=== PATIENT | female | born 1945 | race Hispanic/Latino ===

== ENCOUNTER 2022-06-09 14:59 | Inpatient (IN) | payer MEDICARE, MEDICAID ==
[~2022-06-09] VITALS: Ht 165.1 cm; Wt 68.0 kg
[2022-06-09] VITALS (10 sets, daily range): BP systolic 90–144; BP diastolic 36–77
[2022-06-09 15:27] LABS: BASO% 0.4 % (0-3); EOS% 2.8 % (0-8); HEMATOCRIT 40.4 % (37.0-47.0); HEMOGLOBIN 12.9 g/dl (12.0-16.0); IMMATURE GRANULOCYTES 0.1 % (0.0-5.0); LYMPH% 17.7 % (15-41); MEAN CORPUSCULAR HGB CONC 31.9 g/dL CAL (32.0-36.0); MONO% 9.9 % (2-13); NEUT# 5.6 thou/uL (2.00-7.15); NEUT% 69.1 % (42-76); RED BLOOD COUNT 4.3 mill/uL (4.20-5.60); RED CELL DISTRI WIDTH 13.5 % (11.5-15.5)
[2022-06-09 15:40] LABS: ALBUMIN 4.2 g/dL (3.2-5.0); ALKALINE PHOSPHATASE 116 u/l (38-126); ANION GAP 9 (6-22 (CALC)); BILIRUBIN, TOTAL 0.3 mg/dL (0.02-1.3); BUN 15 mg/dL (8-23); BUN/CREATININE RATIO 22 (12-20 (CALC)); CARBON DIOXIDE 32 mmol/l (22-30); CHLORIDE 104 mmol/l (95-108); CREATININE 0.7 mg/dL (0.5-1.0); GFR FOR AFR.AMER. > 60 ML/MIN (>=60 (CALC)); GFR OTHER RACES > 60 ML/MIN (>=60 (CALC)); POTASSIUM 4.7 mmol/l (3.5-5.1); SGOT/AST 28 u/l (9-36); SODIUM 139 mmol/l (137-146); TOTAL PROTEIN 7.3 g/dL (6.3-8.2)
[2022-06-09] MEDS ORDERED: LOSARTAN POTASS50 MG PO (15:47)
[2022-06-09] MEDS ORDERED: XALATAN 0.005%2.5 ML OU (15:47)
[2022-06-09] MEDS ORDERED: LEVOTHYROXIN50 MCG PO (15:47)
[2022-06-10 03:49] VITALS: BP 115/60
[2022-06-10 05:50] VITALS: BP 113/89
[2022-06-10 09:12] VITALS: BP 125/64
[2022-06-10 13:40] VITALS: BP 134/72
[2022-06-10 23:27] VITALS: BP 128/71
[2022-06-11 03:57] VITALS: BP 139/70
[2022-06-11 05:50] VITALS: BP 113/60
[2022-06-11 05:53] LABS: BASO% 0.1 % (0-3); HEMATOCRIT 38.9 % (37.0-47.0); HEMOGLOBIN 12.3 g/dl (12.0-16.0); IMMATURE GRANULOCYTES 1.2 % (0.0-5.0); LYMPH% 5.4 % (15-41); MEAN CELL VOLUME 95.1 fL CALC (80.0-100.0); MEAN CORPUSCULAR HGB 30.1 pG CALC (26.0-32.0); MEAN CORPUSCULAR HGB CONC 31.6 g/dL CAL (32.0-36.0); NEUT# 18.05 thou/uL (2.00-7.15); NEUT% 90.3 % (42-76); RED BLOOD COUNT 4.09 mill/uL (4.20-5.60); RED CELL DISTRI WIDTH 13.9 % (11.5-15.5)
[2022-06-11 06:25] LABS: ALKALINE PHOSPHATASE 112 u/l (38-126); ANION GAP 12 (6-22 (CALC)); BUN 20 mg/dL (8-23); BUN/CREATININE RATIO 31 (12-20 (CALC)); CARBON DIOXIDE 27 mmol/l (22-30); CHLORIDE 105 mmol/l (95-108); CREATININE 0.6 mg/dL (0.5-1.0); GFR FOR AFR.AMER. > 60 ML/MIN (>=60 (CALC)); GFR OTHER RACES > 60 ML/MIN (>=60 (CALC)); MAGNESIUM 2.1 mg/dL (1.6-2.3); POTASSIUM 4.4 mmol/l (3.5-5.1); SGOT/AST 28 u/l (9-36); SODIUM 139 mmol/l (137-146); TOTAL PROTEIN 6.9 g/dL (6.3-8.2)
[2022-06-11 06:28] LABS: BILIRUBIN, TOTAL 0.1 mg/dL (0.02-1.3)
[2022-06-11 08:24] VITALS: BP 131/75
[2022-06-11 15:04] VITALS: BP 142/72
[2022-06-11 17:48] VITALS: BP 140/70
[2022-06-11 23:10] VITALS: BP 119/55
[2022-06-12 04:15] VITALS: BP 119/54
[2022-06-12 05:47] VITALS: BP 140/72
[2022-06-12 06:18] LABS: BASO% 0.1 % (0-3); HEMATOCRIT 37.2 % (37.0-47.0); HEMOGLOBIN 12.1 g/dl (12.0-16.0); IMMATURE GRANULOCYTES 0.7 % (0.0-5.0); LYMPH% 5.1 % (15-41); MEAN CELL VOLUME 94.4 fL CALC (80.0-100.0); MEAN CORPUSCULAR HGB 30.7 pG CALC (26.0-32.0); MEAN CORPUSCULAR HGB CONC 32.5 g/dL CAL (32.0-36.0); MONO% 2.2 % (2-13); NEUT# 14.12 thou/uL (2.00-7.15); NEUT% 91.9 % (42-76); RED BLOOD COUNT 3.94 mill/uL (4.20-5.60)
[2022-06-12 06:36] LABS: ALBUMIN 3.8 g/dL (3.2-5.0); ALKALINE PHOSPHATASE 100 u/l (38-126); ANION GAP 11 (6-22 (CALC)); BUN 21 mg/dL (8-23); BUN/CREATININE RATIO 32 (12-20 (CALC)); CARBON DIOXIDE 29 mmol/l (22-30); CHLORIDE 102 mmol/l (95-108); CREATININE 0.7 mg/dL (0.5-1.0); GFR FOR AFR.AMER. > 60 ML/MIN (>=60 (CALC)); GFR OTHER RACES > 60 ML/MIN (>=60 (CALC)); MAGNESIUM 2.2 mg/dL (1.6-2.3); POTASSIUM 4.5 mmol/l (3.5-5.1); SGOT/AST 25 u/l (9-36); SODIUM 138 mmol/l (137-146); TOTAL PROTEIN 6.6 g/dL (6.3-8.2)
[2022-06-12 14:50] VITALS: BP 145/78
[2022-06-12 21:18] VITALS: BP 141/78
[2022-06-13 03:06] VITALS: BP 153/68
[2022-06-13 05:44] LABS: BASO% 0.1 % (0-3); HEMATOCRIT 37.5 % (37.0-47.0); HEMOGLOBIN 12.1 g/dl (12.0-16.0); IMMATURE GRANULOCYTES 1.4 % (0.0-5.0); LYMPH% 6.6 % (15-41); MEAN CELL VOLUME 93.8 fL CALC (80.0-100.0); MEAN CORPUSCULAR HGB 30.3 pG CALC (26.0-32.0); MEAN CORPUSCULAR HGB CONC 32.3 g/dL CAL (32.0-36.0); MONO% 4.2 % (2-13); NEUT# 10.03 thou/uL (2.00-7.15); NEUT% 87.7 % (42-76); RED CELL DISTRI WIDTH 13.5 % (11.5-15.5)
[2022-06-13 05:54] LABS: ALBUMIN 3.6 g/dL (3.2-5.0); ALKALINE PHOSPHATASE 90 u/l (38-126); ANION GAP 11 (6-22 (CALC)); BILIRUBIN, TOTAL 0.1 mg/dL (0.02-1.3); BUN 23 mg/dL (8-23); BUN/CREATININE RATIO 35 (12-20 (CALC)); CARBON DIOXIDE 30 mmol/l (22-30); CHLORIDE 100 mmol/l (95-108); CREATININE 0.7 mg/dL (0.5-1.0); GFR FOR AFR.AMER. > 60 ML/MIN (>=60 (CALC)); GFR OTHER RACES > 60 ML/MIN (>=60 (CALC)); MAGNESIUM 2.1 mg/dL (1.6-2.3); POTASSIUM 4.5 mmol/l (3.5-5.1); SGOT/AST 24 u/l (9-36); SODIUM 136 mmol/l (137-146)
[2022-06-13 08:28] VITALS: BP 133/73
[2022-06-13 11:08] VITALS: BP 160/80
[2022-06-13 13:56] VITALS: BP 142/80
[2022-06-13 18:13] VITALS: BP 143/84
[2022-06-14] VITALS: BP 137/74
[2022-06-14 03:15] VITALS: BP 130/68
[2022-06-14 05:09] VITALS: BP 142/83
[2022-06-14 06:55] LABS: BASO% 0.1 % (0-3); HEMATOCRIT 38.7 % (37.0-47.0); HEMOGLOBIN 12.5 g/dl (12.0-16.0); LYMPH% 7.6 % (15-41); MEAN CELL VOLUME 93.3 fL CALC (80.0-100.0); MEAN CORPUSCULAR HGB 30.1 pG CALC (26.0-32.0); MEAN CORPUSCULAR HGB CONC 32.3 g/dL CAL (32.0-36.0); MONO% 5.2 % (2-13); NEUT# 7.57 thou/uL (2.00-7.15); NEUT% 85.1 % (42-76); RED BLOOD COUNT 4.15 mill/uL (4.20-5.60); RED CELL DISTRI WIDTH 13.3 % (11.5-15.5)
[2022-06-14 07:11] LABS: ALBUMIN 3.5 g/dL (3.2-5.0); ALKALINE PHOSPHATASE 87 u/l (38-126); ANION GAP 10 (6-22 (CALC)); BILIRUBIN, TOTAL 0.1 mg/dL (0.02-1.3); BUN 21 mg/dL (8-23); BUN/CREATININE RATIO 31 (12-20 (CALC)); CARBON DIOXIDE 31 mmol/l (22-30); CHLORIDE 101 mmol/l (95-108); CREATININE 0.7 mg/dL (0.5-1.0); GFR FOR AFR.AMER. > 60 ML/MIN (>=60 (CALC)); GFR OTHER RACES > 60 ML/MIN (>=60 (CALC)); MAGNESIUM 2.2 mg/dL (1.6-2.3); POTASSIUM 4.6 mmol/l (3.5-5.1); SGOT/AST 24 u/l (9-36); SODIUM 136 mmol/l (137-146)
[2022-06-14 09:10] VITALS: BP 151/84
[2022-06-14] MEDS ORDERED: AZITHROMYCIN500 MG PO (12:07)
[2022-06-14] MEDS ORDERED: PREDNISONE10 MG PO (12:07)
[2022-06-14] MEDS ORDERED: ALBUTEROL SUL0.083 % IN (12:42)
== END 2022-06-14 13:23 | disposition home or self-care (01) | DRG 203 ==
LOC: ED 14:59 → ED-I 16:15 → ED 16:15 → MS2 17:01
PROVIDERS: Family Medicine; Nurse Practitioner Family; ADMIT Internal Medicine; ATTEND Internal Medicine
DX: J45.901 Unspecified asthma with (acute) exacerbation (principal); I10 Essential (primary) hypertension; E03.9 Hypothyroidism, unspecified; E78.00 Pure hypercholesterolemia, unspecified; Z95.5 Presence of coronary angioplasty implant and graft; Z99.81 Dependence on supplemental oxygen; Z20.822 Contact with and (suspected) exposure to COVID-19
CPT/HCPCS: J1650; J3475; Q9967